=== PATIENT | female | born 1985 | race Caucasian/White ===

== ENCOUNTER 2017-06-28 13:49 | Emergency (ER) | payer OTHER ==
[~2017-06-28] VITALS: Ht 165.1 cm; Wt 91.6 kg
[~2017-06-28 13:49] MED LIST: CLON1TAB3 PO; GABA800T PO; PRENTAB26 PO
[2017-06-28 13:53] VITALS: Ht 165.1 cm; Wt 91.6 kg
[2017-06-28] MEDS ORDERED: ONDANSETRON INJ 2 MG/ML 2 ML VIAL IV STA (14:11)
[2017-06-28] MEDS ORDERED: MoRPHine SULFATE 4 MG/ML 1 ML CARP\\VIAL IV STA (14:11)
[2017-06-28] MEDS ORDERED: CITA40TA4 PO (14:12)
[2017-06-28] MEDS ORDERED: LORAZEPAM 2 MG/ML 1 ML VIAL IV STA (14:47)
[2017-06-28 15:55] LABS: BASO % 0.3 %; BASO ABS # 0.02 K/uL (0-0.2); COMPLETE YES; EOS % 2.1 %; LYMPH % 25.3 %; LYMPH ABS # 2.01 K/uL (1.2-3.4); MEAN CELL VOLUME 94.1 fL (80-100); MEAN CORPUSCULAR HEMOGLOBIN 31.5 pg (25-34); MEAN CORPUSCULAR HGB CONC 33.5 g/dl (32-36); MEAN PLATELET VOLUME 11.3 fL (7.4-10.4); MONO % 4.3 %; PLATELET COUNT 195 K/uL (130-400); RED BLOOD COUNT 4.57 M/uL (4.2-5.4); WHITE BLOOD COUNT 7.94 K/uL (4.8-10.8)
[2017-06-28 16:16] LABS: ALT/SGPT 17 U/L (12-78); AST/SGOT 10 U/L (15-37); BLOOD UREA NITROGEN 9 mg/dl (7-18); BUN/CREATININE RATIO 14.3 (10-20); CALCIUM 8.7 mg/dl (8.5-10.1); CARBON DIOXIDE 26 mmol/L (21-32); CHLORIDE 110 mmol/L (98-107); CREATININE 0.62 mg/dl (0.60-1.20); GLUCOSE 88 mg/dl (70-99); SODIUM 140 mmol/L (136-145)
[2017-06-28 16:18] LABS: ALKALINE PHOSPHATASE 58 U/L (45-117)
--- NOTE | 2017-06-28 16:30 | DIAGNOSTIC IMAGING REPORT ---
PA CHEST RADIOGRAPH AND UPRIGHT AND SUPINE AP RADIOGRAPHS OF THE ABDOMEN CLINICAL HISTORY: Abdominal pain. COMPARISON STUDY: Chest radiograph and abdominal series August 05, 2014. FINDINGS: Lung volumes are normal. Lungs are clear. Pulmonary vascularity is normal. Cardiomediastinal silhouette is normal. There is no pneumothorax or pleural effusion. There is no free air. The bowel gas pattern is normal. Pelvic calcifications likely reflect phleboliths IMPRESSION: 1. No free air or evidence of bowel obstruction. 2. No acute cardiopulmonary findings. Electronically signed by: Americo Tee M.D. 06/28/2017 4:28 PM Dictated Date/Time: 06/28/2017 4:26 PM
[2017-06-28 16:53] LABS: URINE APPEARANCE CLEAR (CLEAR); URINE BILIRUBIN NEG (NEG); URINE COLOR DK YELLOW; URINE EPITHELIAL CELL AUTO >30 /lpf (0-5); URINE NITRITE NEG (NEG); URINE SPECIFIC GRAVITY 1.025 (1.000-1.030); UROBILINOGEN NEG (NEG)
[2017-06-28 16:56] LABS: MANUAL MICROSCOPIC REQUIRED? NO; REVIEW REQ? NO
[2017-06-28] MEDS ORDERED: ONDA4TAB46 PO (17:34)
[2017-06-28 17:44] VITALS: BP 97/58; PULSE 59; TEMP 37; O2SAT 98
--- NOTE | 2017-06-29 00:07 | EMERGENCY ROOM VISIT NOTE ---
ED Visit Note First contact with patient: 13:58 Chief Complaint: Vomiting abdominal cramping and nausea. History of Present Illness: Ms. Lim is a 31-year-old white female who ambulates into the ED accompanied by male friend complaining of diffuse abdominal pain and nausea. Historically patient denies any significant gastrointestinal disorders and she has had 1 previous D&C without complication. Patient reports her symptoms started 3 days ago she started developing diffuse abdominal cramping. Since that time her pain has been constant but waxes and wanes in intensity. Although her discomfort is diffuse when asked to point to her pain she places her discomfort in the right mid quadrant area. She does report occasionally there is radiation of her pain into the flank. She currently rates her discomfort 03/31. She reports she's been taken ibuprofen at home without relief of her discomfort. Associated with her pain she has been constantly nauseated and has had 1 episode of vomiting on the first day of her pain and she has had a decreased appetite. She denies fevers, chills, sweats, skin eruptions, skin color changes, upper respiratory tract symptoms, cough, shortness of breath, chest pain, diarrhea, constipation, rectal bleeding, black/tarry stools, urinary symptoms, hematuria, vaginal bleeding, vaginal discharge. Review of Systems: As noted above in history of present illness. All body systems were reviewed and found to be negative as noted above. Past Medical History: As previously noted anxiety. Current Medications: Citalopram. Allergies to Medications: Ketorolac tromethamine, penicillin, sulfa. Social History: Patient feels safe in her home environment; she admits to tobacco use. Physical Examination: Vital Signs: Date Time Temp Pulse Resp B/P (MAP) Pulse Ox O2 Delivery O2 Flow Rate FiO2 06/28/17 17:44 37.0 59 18 97/58 98 06/28/17 17:37 59 97/58 98 Room Air 06/28/17 16:57 102/52 97 06/28/17 16:21 62 18 100/45 98 06/28/17 13:53 37.0 87 18 108/67 98 Room Air GENERAL: 31-year-old female in mild distress due to pain, nontoxic-appearing, afebrile and hemodynamically stable. NEUROLOGICAL: Awake, alert and oriented to person, place and time. Answering questions appropriately and following commands. Normal gait. Good hand eye coordination. SKIN: Warm, dry and pink. No soft tissue eruptions or trauma noted. HEENT: Atraumatic and normocephalic. PERRL. Sclera white and conjunctiva pink. No drainage from naris. Oral cavity moist and pink. Pharynx is nonerythematous or edematous. Speech normal. No lymphadenopathy. Trachea midline. No jugular venous distention. BACK: No tenderness over the bony spine. No CVA tenderness. THORAX: Lungs sounds are clear to auscultation and equal bilaterally with symmetrical chest wall. No wheezing, rales or rhonchi. No crepitus, tenderness , subcutaneous air or deformities noted. HEART: Regular rate and rhythm. No gallops, rubs or murmurs are appreciated. ABDOMEN: Flat and soft and nontender. Positive bowel sounds in all quadrants. No guarding, rigidity or organomegaly. EXTREMITIES: Moves all extremities well on command and with purpose. All distal neurovascular statuses are intact and equal bilaterally. No calf tenderness or cords. ED Course: Patient is assessed as noted above. Patient's medication list was reviewed. Laboratory Testing: Test 06/28/17 15:43 06/28/17 16:10 Range/Units White Blood Count 7.94 4.8-10.8 K/uL Red Blood Count 4.57 4.2-5.4 M/uL Hemoglobin 14.4 12.0-16.0 g/dL Hematocrit 43.0 37-47 % Mean Corpuscular Volume 94.1 80-100 fL Mean Corpuscular Hemoglobin 31.5 25-34 pg Mean Corpuscular Hemoglobin Concent 33.5 32-36 g/dl Platelet Count 195 130-400 K/uL Mean Platelet Volume 11.3 7.4-10.4 fL Neutrophils (%) (Auto) 68.0 % Lymphocytes (%) (Auto) 25.3 % Monocytes (%) (Auto) 4.3 % Eosinophils (%) (Auto) 2.1 % Basophils (%) (Auto) 0.3 % Neutrophils # (Auto) 5.40 1.4-6.5 K/uL Lymphocytes # (Auto) 2.01 1.2-3.4 K/uL Monocytes # (Auto) 0.34 0.11-0.59 K/uL Eosinophils # (Auto) 0.17 0-0.5 K/uL Basophils # (Auto) 0.02 0-0.2 K/uL RDW Standard Deviation 48.8 36.4-46.3 fL RDW Coefficient of Variation 14.3 11.5-14.5 % Immature Granulocyte % (Auto) 0.0 % Immature Granulocyte # (Auto) 0.00 0.00-0.02 K/uL Sodium Level 140 136-145 mmol/L Potassium Level 4.0 3.5-5.1 mmol/L Chloride Level 110 98-107 mmol/L Carbon Dioxide Level 26 21-32 mmol/L Anion Gap 4.0 3-11 mmol/L Blood Urea Nitrogen 9 7-18 mg/dl Creatinine 0.62 0.60-1.20 mg/dl Est Creatinine Clear Calc Drug Dose 144.3 ml/min Estimated GFR () 137.3 Estimated GFR (Non- 118.5 BUN/Creatinine Ratio 14.3 10-20 Random Glucose 88 70-99 mg/dl Calcium Level 8.7 8.5-10.1 mg/dl Total Bilirubin 0.2 0.2-1 mg/dl Direct Bilirubin < 0.1 0-0.2 mg/dl Aspartate Amino Transf (AST/SGOT) 10 15-37 U/L Alanine Aminotransferase (ALT/SGPT) 17 12-78 U/L Alkaline Phosphatase 58 45-117 U/L Total Protein 7.1 6.4-8.2 gm/dl Albumin 3.6 3.4-5.0 gm/dl Lipase 71 73-393 U/L Urine Color DK YELLOW Urine Appearance CLEAR CLEAR Urine pH 7.0 4.5-7.5 Urine Specific [place] 1.025 1.000-1.030 Urine Protein NEG NEG Urine Glucose (UA) NEG NEG Urine Ketones NEG NEG Urine Occult Blood NEG NEG Urine Nitrite NEG NEG Urine Bilirubin NEG NEG Urine Urobilinogen NEG NEG Urine Leukocyte Esterase TRACE NEG Urine WBC (Auto) 1-5 0-5 /hpf Urine RBC (Auto) 0-4 0-4 /hpf Urine Hyaline Casts (Auto) 1-5 0-5 /lpf Urine Epithelial Cells (Auto) >30 0-5 /lpf Urine Bacteria (Auto) NEG NEG Urine Test NEG NEG Acute Abdominal X-Ray Series: Were read by myself and the radiologist showing a normal-appearing PA chest with no signs of infiltrates, effusions or pneumothorax. Normal heart silhouette and bony anatomy. Abdominal component shows no free air under the diaphragm, nonspecific bowel gas pattern and pelvic calcification likely reflecting phleboliths. I also noted a increase in fecal material. Patient was hydrated with normal saline, she received 4 mg of morphine IV for pain and 4 mg of Zofran IV. During her stay she reports she was feeling slightly anxious and was given 0.5 mg of Ativan IV. Patient was reassessed multiple times during her stay in the emergency department. Patient was offered a right upper quadrant/gallbladder ultrasound and refused; she requested that she could have this done as an outpatient with her family doctor and I agreed. Patient's case was reviewed with Dr. Vasquez; we agreed on diagnostic approach, treatment, disposition and plan. Patient was educated about today's findings and instructed on her treatment plan ; she verbalized understanding and agreement with this plan. Clinical Impression: Acute mid right quadrant abdominal pain. Decision-Making: Initially my differential diagnosis I considered appendicitis, pancreatitis, hepatitis, ureter calculus, pyelonephritis, constipation, colitis and other causes. Disposition: Patient discharged home in stable condition accompanied by her ; prior to departure she was reassessed and subjectively reported she was pain and symptom-free. Just prior to her departure she requested from nursing staff a home pack of Ativan for her anxiety. I did note that she takes citalopram at home and encouraged her to use this medication. Plan: Patient was encouraged to continue her current medications as prescribed. Patient was encouraged to follow-up with her PCP and request outpatient gallbladder ultrasound. Patient was encouraged to alternate ibuprofen and acetaminophen every 3 hours as needed for pain. Patient was prescribed Zofran 4 mg every 6 hours as needed for nausea/vomiting. Patient was encouraged use a bland diet for the next 48 hours and avoid stomach irritants. Patient was encouraged to follow-up with her PCP for recheck and possible referral to GI specialist or general surgery. Patient was encouraged return ED for worsening/uncontrolled pain, worsening nausea/vomiting, bloody vomitus, fevers, right lower quadrant pain or any new/ concerning symptoms.
== END 2017-06-28 17:46 | disposition home or self-care (01) ==
LOC: C.EDB 13:52 → C.EDC 17:46
DX: R10.11 Right upper quadrant pain (principal); F41.9 Anxiety disorder, unspecified; Z79.899 Other long term (current) drug therapy; Z72.0 Tobacco use

== ENCOUNTER 2018-03-07 12:48 | Emergency (ER) | payer OTHER ==
[~2018-03-07] VITALS: Ht 165.1 cm; Wt 103.8 kg
[~2018-03-07 12:48] MED LIST changes: +CITA40TA4 PO; -CLON1TAB3 PO; -GABA800T PO; -PRENTAB26 PO
[2018-03-07 12:53] VITALS: TEMP 37.1; Ht 165.1 cm; Wt 103.8 kg
[2018-03-07] MEDS ORDERED: TRAMADOL HCL 50 MG TAB PO STA (13:14)
[2018-03-07] MEDS ORDERED: LORAZEPAM 1 MG TAB PO STA (13:14)
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
[2018-03-07] MEDS ORDERED: OPTIRAY 320 IV PRN (14:00)
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
[2018-03-07 16:31] VITALS: BP 99/75; PULSE 87; O2SAT 96
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
== END 2018-03-07 16:32 | disposition home or self-care (01) ==
LOC: C.EDB 12:50 → C.EDC 16:32
DX: M54.2 Cervicalgia (principal); R07.0 Pain in throat; R07.81 Pleurodynia; T76.11XA Adult physical abuse, suspected, initial encounter; X58.XXXA Exposure to other specified factors, initial encounter; R22.0 Localized swelling, mass and lump, head; J45.909 Unspecified asthma, uncomplicated; F32.9 Major depressive disorder, single episode, unspecified; F41.9 Anxiety disorder, unspecified; E11.9 Type 2 diabetes mellitus without complications

== ENCOUNTER 2018-05-25 18:07 | Emergency (ER) | payer OTHER ==
[~2018-05-25] VITALS: Ht 165.1 cm; Wt 94.6 kg
[~2018-05-25 18:07] MED LIST changes: +CITA40TA12 PO; +CLON1TAB4 PO; +CLON1TAB5 PO
[2018-05-25 18:11] VITALS: Ht 165.1 cm; Wt 94.6 kg
[2018-05-25] MEDS ORDERED: TOPI50TA16 PO (18:22)
[2018-05-25] MEDS ORDERED: CLONAZEPAM 1 MG TAB PO STA (18:24)
[2018-05-25] MEDS ORDERED: TRAMADOL HCL 50 MG TAB PO STA (18:24)
[2018-05-25] MEDS ORDERED: CLINDAMYCIN HCL 150 MG CAP PO STA (18:24)
[2018-05-25] MEDS ORDERED: TRAM-10 PO (18:49)
[2018-05-25] MEDS ORDERED: CLIN300C10 PO (18:49)
[2018-05-25] MEDS ORDERED: CLON0.5T9 PO (18:49)
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
[2018-05-25 19:01] VITALS: BP 150/77; PULSE 122; TEMP 36.7; O2SAT 97
== END 2018-05-25 19:11 | disposition home or self-care (01) ==
LOC: C.EDB 18:09 → C.EDD 19:11
DX: K02.9 Dental caries, unspecified (principal); K08.89 Other specified disorders of teeth and supporting structures; F41.9 Anxiety disorder, unspecified; F32.9 Major depressive disorder, single episode, unspecified; G43.909 Migraine, unspecified, not intractable, without status migrainosus; F17.200 Nicotine dependence, unspecified, uncomplicated

== ENCOUNTER 2018-06-07 21:11 | Emergency (ER) | payer OTHER ==
[~2018-06-07] VITALS: Ht 165.1 cm; Wt 96.7 kg
[~2018-06-07 21:11] MED LIST changes: -CITA40TA12 PO; +CLIN300C10 PO; +CLON1TAB10 PO; -CLON1TAB4 PO; -CLON1TAB5 PO; +TOPI50TA16 PO; +TRAM-10 PO
[2018-06-07 21:16] VITALS: TEMP 37.1; Ht 165.1 cm; Wt 96.7 kg
[2018-06-07] MEDS ORDERED: GABAPENTIN 400 MG CAP PO ONE (23:00)
[2018-06-07] MEDS ORDERED: CLONAZEPAM 1 MG TAB PO ONE (23:00)
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
[2018-06-07] MEDS ORDERED: CLON0.5T9 PO (23:02)
[2018-06-07] MEDS ORDERED: GABA-113 PO (23:02)
[2018-06-07 23:17] VITALS: BP 121/77; PULSE 101; O2SAT 98
[2018-06-08] MEDS ORDERED: CLON1TAB10 PO (17:44)
[2018-06-08] MEDS ORDERED: CITA20TA4 PO (17:44)
[2018-06-08] MEDS ORDERED: GABA600T PO (17:44)
== END 2018-06-07 23:19 | disposition home or self-care (01) ==
LOC: C.EDB 21:12 → C.EDA 23:19
DX: Z76.0 Encounter for issue of repeat prescription (principal); K08.89 Other specified disorders of teeth and supporting structures; F41.8 Other specified anxiety disorders; J45.909 Unspecified asthma, uncomplicated; I10 Essential (primary) hypertension; E11.9 Type 2 diabetes mellitus without complications; F17.200 Nicotine dependence, unspecified, uncomplicated; Z88.1 Allergy status to other antibiotic agents; Z88.0 Allergy status to penicillin; Z88.2 Allergy status to sulfonamides; Z88.6 Allergy status to analgesic agent

== ENCOUNTER 2018-06-08 16:58 | Emergency (ER) | payer OTHER ==
[~2018-06-08] VITALS: Ht 165.1 cm; Wt 96.1 kg
[~2018-06-08 16:58] MED LIST changes: -CLIN300C10 PO; +CLON0.5T9 PO; -CLON1TAB10 PO; +GABA-113 PO; -TRAM-10 PO
[2018-06-08 17:08] VITALS: BP 138/89; PULSE 98; TEMP 36.8; O2SAT 96; Ht 165.1 cm; Wt 96.1 kg
[2018-06-08] MEDS ORDERED: CLONAZEPAM 0.5 MG TAB PO STA (17:32)
[2018-06-08] MEDS ORDERED: GABAPENTIN 300 MG CAP PO STA (17:32)
--- NOTE | 2018-06-08 17:37 | EMERGENCY ROOM VISIT NOTE ---
ED Visit Note First contact with patient: 17:16 CHIEF COMPLAINT: Anxiety, toothache, medication refill HISTORY OF PRESENT ILLNESS: This 32-year-old female patient presents to the emergency department, ambulatory, complaining of anxiety and toothache, both of which are chronic problems. The patient states she ran out of her medications last week and her symptoms have been unbearable since then. She was seen here in the emergency department for the same problem and was given 1 dose of gabapentin and Klonopin at that time. She states she ran out of her Klonopin 2 days ago, as she was late seeing her psychiatrist due to working overtime. She states she has been out of the gabapentin for 3 weeks. She states she does have a psychiatrist appointment for next , but later states the appointment is for Sunday or . She denies any new injury causing the tooth pain. She denies any drainage or swelling. She states the tooth is rotten, and she will be scheduling appointment with her dentist in 3 weeks due to obtaining a new insurance. The patient denies any suicidal or homicidal ideations. REVIEW OF SYSTEMS: A review of systems was performed with positives and pertinent negatives listed in the history of present illness. All other systems were reviewed and are negative. ALLERGIES: Cephalexin, penicillin, sulfa, Toradol MEDICATIONS: Citalopram, Topamax, Klonopin, gabapentin PMH: Anxiety, chronic pain SOCIAL HISTORY: The patient lives locally with family. She denies drug, alcohol use. She admits to smoking cigarettes daily. PHYSICAL EXAM: VITALS: Vitals are noted on the nurse's note and reviewed by myself. Vital signs stable. GENERAL: This is a 32-year-old white female, in no acute distress, nondiaphoretic, well-developed well-nourished. SKIN: The skin was without rashes, erythema, edema, or bruising. There is no tenting of the skin. Capillary reflex less than 2 seconds. HEAD: Normocephalic atraumatic. EARS: External auditory canals clear, tympanic membranes pearly staley without erythema or effusion bilaterally. EYES: Pupils equal round and reactive to light and accommodation. Conjunctivae without injection, sclerae without icterus. Extraocular movements intact. NOSE: Patent, turbinates without inflammation or discharge. No sinus tenderness. MOUTH: Very poor dentition. No obvious abscess or drainage noted. Dental caries in all molars remaining. Mucous membranes moist. Tonsils are not enlarged. Pharynx without erythema or exudate. Uvula midline. Airway patent. Tongue does not deviate. NECK: Supple without nuchal rigidity. No lymphadenopathy. No thyromegaly. Cervical spine is nontender. No JVD. HEART: Regular rate and rhythm without murmurs gallops or rubs. LUNGS: Clear to auscultation bilaterally without wheezes, rales or rhonchi. No dullness to percussion. No retractions or accessory muscle use. MUSCULOSKELETAL: No muscle atrophy, erythema, or edema noted. Full range of motion without joint tenderness in all extremities. No tenderness to palpation. Normal gait. Strength 5/5 throughout. NEURO: Patient was alert and oriented to person place and time. Normal sensation to light and sharp touch. No focal neurological deficits. EMERGENCY DEPARTMENT COURSE: The patient was seen and evaluated as above. Previous medical records reviewed. The patient is requesting refills of her medications, she was late getting them. She had advised the provider last night that she saw Dr. Valencia, but today, she advised me that she is seeing Dr. Pat. Per the [facility] last night, the patient had been out of Klonopin for at least 10 days and has not taken gabapentin since earlier this summer. The patient is currently on the no narcotic list as well as no gabapentin. I advised her that I would again give her a dose of the clonazepam and gabapentin while here in the emergency department, but I would not be prescribing these medications for her. I advised her that as her medications and problems are chronic, the emergency department would be unable to prescribe these medications for her, and she would need to follow-up with her psychiatrist /primary care provider/dentist regarding ongoing medication refills. The patient verbalized agreement and understanding. All questions answered to patient's satisfaction prior to discharge. Discharge instructions reviewed, the patient was discharged home in good condition. I attest that I have personally reviewed the patient's current medication list. Patient was found to have normal blood pressure on screening and does not require follow-up. Differential diagnosis includes anxiety, drug-seeking behavior, odontalgia, periapical abscess, acute sinusitis, osteomyelitis, gingivitis, pulpitis, dental caries, periodontitis, malignancy, and others DIAGNOSIS: Odontalgia, anxiety, medication refill request The chart was completed utilizing [employer] Speech voice recognition software. Grammatical errors, random word insertions, pronoun errors, and incomplete sentences are an occasional consequence of this system due to software limitations, ambient noise, and hardware issues. Any formal questions or concerns about the content, text, or information contained within the body of this dictation should be directly addressed to the provider for clarification. Problem List Medical Problems: (1) Anxiety Status: Chronic (2) DM (diabetes mellitus) Status: Chronic (3) Migraines Status: Chronic Current/Historical Medications Scheduled Citalopram Hydrobromide (Citalopram Hydrobromide), 1 TAB PO DAILY Gabapentin (Neurontin), 600 MG PO TID Topiramate (Topamax), 50 MG PO BID Scheduled PRN Clonazepam (Klonopin), 1 MG PO BID PRN for Anxiety Allergies Coded Allergies: Cephalexin (Verified Allergy, Intermediate, swelling, 06/08/18) Penicillins (Verified Allergy, Mild, ?, 06/08/18) Sulfa Antibiotics (Verified Allergy, Unknown, ?, 06/08/18) Ketorolac Tromethamine (Verified Adverse Reaction, Intermediate, "it makes me feel weird.", 06/08/18) Vital Signs Date Time Temp Pulse Resp B/P (MAP) Pulse Ox O2 Delivery O2 Flow Rate FiO2 06/08/18 17:08 36.8 98 20 138/89 96 Room Air Medications Administered Medications (Trade) Dose Ordered Sig/Bryon Route Start Time Stop Time Status Last Admin Dose Admin Clonazepam (Klonopin Tab) 0.5 mg NOW STAT PO 06/08/18 17:32 06/08/18 17:33 DC 06/08/18 17:49 0.5 MG Gabapentin (Neurontin Cap) 300 mg NOW STAT PO 06/08/18 17:32 06/08/18 17:33 DC 06/08/18 17:49 300 MG Departure Information Impression Primary Impression: Medication refill Additional Impressions: Anxiety Odontalgia Dispostion Home / Self-Care Condition GOOD Referrals No Doctor, Assigned (PCP) Patient Instructions Chronic Pain Manage Meds, My [facility] Additional Instructions You were seen in the ED today for medication refills. As discussed, the ED will not refill your medications, as these are chronic medications/controlled substances used to treat chronic conditions. You were given one dose of the Clonazepam and Gabapentin here in the ED today. Please work with your PCP/psychiatrist/dentist regarding ongoing management of these chronic problems. Return to the ED for any acute concerns, suicidal ideation, homicidal ideation, fevers, systemic symptoms, or other concerns. Problem Qualifiers
[2018-06-08] MEDS ORDERED: CLON1TAB10 PO (17:44)
[2018-06-08] MEDS ORDERED: GABA600T PO (17:44)
[2018-06-08] MEDS ORDERED: CITA20TA4 PO (17:44)
== END 2018-06-08 17:54 | disposition home or self-care (01) ==
LOC: C.EDB 17:00 → C.EDD 17:54
DX: K08.89 Other specified disorders of teeth and supporting structures (principal); F41.9 Anxiety disorder, unspecified; E11.9 Type 2 diabetes mellitus without complications; F17.200 Nicotine dependence, unspecified, uncomplicated; Z88.0 Allergy status to penicillin; Z88.2 Allergy status to sulfonamides; Z88.8 Allergy status to other drugs, medicaments and biological substances